=== PATIENT | male | born 1985 | race Caucasian/White ===

== ENCOUNTER 2022-09-06 13:08 | Outpatient (AMB) | payer MEDICAID, SELFPAY ==
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
[2022-09-06 13:14] VITALS: BP 136/72; PULSE 74; O2SAT 96
== END 2022-09-06 13:49 | disposition home or self-care (01) ==
LOC: HO.HCC 13:08
PROVIDERS: PCP Internal Medicine; Visit Provider Nurse Practitioner Psychiatric/Mental Health
DX: F11.90 Opioid use, unspecified, uncomplicated (principal)
CPT/HCPCS: 99204

== ENCOUNTER → 2022-09-06 13:08 | Outpatient (BNVA) | payer MEDICAID, SELFPAY | PROVIDERS: PCP Internal Medicine; Visit Provider Nurse Practitioner Psychiatric/Mental Health | DX: F11.20 Opioid dependence, uncomplicated (principal) | CPT/HCPCS: 99204 ==

== ENCOUNTER 2022-09-19 13:41 | Outpatient (AMB) | payer MEDICAID, SELFPAY ==
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
[2022-09-19 13:50] VITALS: BP 124/72; PULSE 95; O2SAT 98
== END 2022-09-19 14:54 | disposition home or self-care (01) ==
LOC: HO.HCC 13:41
PROVIDERS: PCP Internal Medicine; Visit Provider Nurse Practitioner Psychiatric/Mental Health
DX: F11.90 Opioid use, unspecified, uncomplicated (principal)
CPT/HCPCS: 99214; Q9992

== ENCOUNTER → 2022-09-19 13:41 | Outpatient (BNVA) | payer MEDICAID, SELFPAY | PROVIDERS: PCP Internal Medicine; Visit Provider Nurse Practitioner Psychiatric/Mental Health | DX: F11.20 Opioid dependence, uncomplicated (principal) | CPT/HCPCS: 80305; 96372; 99214 ==

== ENCOUNTER 2022-09-27 07:14 | Emergency (ER) | payer MEDICAID, SELFPAY ==
[2022-09-27 07:19] VITALS: BP 141/96; PULSE 110; RESP 20; TEMP 36.7; O2SAT 100; BMI 25.8
--- NOTE | 2022-09-27 08:06 | ED_ITS ---
HPI - Abdominal Pain General Chief Complaint: Abdominal Pain Stated Complaint: N/V per EMS Time Seen by Provider: 09/27/22 07:14 Source: patient and other (Girlfriend, eRnea) Mode of arrival: EMS Limitations: no limitations History of Present Illness HPI narrative: 29-year-old male who presents emergency department for evaluation of 3 days of epigastric pain, nausea, vomiting, unable to sleep. The patient states that he has has had heartburn in the past. He states over the last 3 days his heartburn symptoms have come back. He points to his epigastric area and states that he has a burning sensation that travels up his neck to the back of his throat. He states that any time he eats or drinks the pain gets worse and he vomits . He states he has had very little food and fluid intake over the last 3 days. He states that he has not had any sleep over the past 3 days. Patient does have a history of opiate and cocaine use disorder. He states he last used intranasal cocaine 3 days prior. He is on Subutex IM and Suboxone. He states that he used opiates several weeks ago. He denied fever chills. He denied sore throat, cough, chest pain. He does have shortness of breath. He denied diarrhea, dark black stools or bloody stools. Patient was recently seen by to [facility] medicine on 09/19/2022-note does reference the patient's recent cocaine use cut with methadone and patient's heroin use. Patient is on you been or friend injections and Suboxone sublingually twice a day. His tox screen that visit was positive for cocaine, methamphetamine, bupernorphine. Related Data Previous Rx's Medication Instructions Recorded buprenorphine 300 mg/1.5 mL 300 mg (1.5 mL) subcut .COMPLEX 09/06/22 solution,exten.rel.subcutaneous #1.5 mL syringe (Sublocade) buprenorphine 8 mg-naloxone 2 mg 1 film sublingual BID #12 ea 09/06/22 sublingual film (Suboxone) naloxone 4 mg/actuation nasal 4 mg intranasal Q2M PRN opioid 09/06/22 spray (Narcan) overdose #2 ea aluminum hydrox-magnesium carb 254 10 ml PO QID PRN dyspepsia #355 mL 09/27/22 mg-237.5 mg/5 mL oral suspension (Gaviscon Extra Strength) omeprazole 20 mg capsule,delayed 20 mg PO DAILY 30 days #30 caps 09/27/22 release promethazine 25 mg tablet 25 mg PO Q6H PRN nausea and 09/27/22 vomiting #14 tabs Allergies Allergy/AdvReac Type Severity Reaction Status Date / Time No Known Allergies Allergy Unverified 09/19/22 13:43 Review of Systems Review of Systems Yes all other systems are reviewed and are negative [facility] Past Medical History [facility] Narrative: Past medical history: GERD, opiate and cocaine use disorder. Past surgical history: None. Social history: He smokes 5 cigarettes per day times 15 years. He states that he does drink alcohol and he last had to nips of alcohol 4 days prior. Patient does admit to using intranasal cocaine 3 days prior and using o piates 2 weeks prior. Social History Social History Advance Directives: No Advance Directives Information Provided: Yes Physical Exam ED Vital Signs: Vital Signs - 24 hr 09/27/22 07:19 Temperature 98.1 F Pulse Rate 110 H Respiratory Rate 20 Blood Pressure 141/96 H Pulse Oximetry 100 Oxygen Delivery Method Room Air BMI result Body Mass Index 25.8 Vital signs revealed an elevated blood pressure of 141/96 and elevated pulse of 110 Exam: General: Awake, appears anxious and very animated Head: Normocephalic, atraumatic EENT: PERRL, Lids normal, sclera normal, conjunctiva normal, nose normal , ears normal, throat without erythema or exudates Neck: Supple, no adenopathy, trachea midline and nontender Lung: breath sounds symmetric, no wheezing, rales or rhonchi Chest: symmetric movement, nontender Heart: regular rate and rhythm, normal S1, S2 no murmurs or rubs Abdomen: soft, mild diffuse tenderness, moderate epigastric tenderness, nondistended, normal bowel sounds Back: no vertebral tenderness, no CVAT Extremities: no deformities, moves all extremities symmetrically Skin: no rashes, no lesion, normal color and warmth Neuro: Awake, alert, oriented, normal speech, cranial nerves intact, moves all extremities symmetrically Psych: Pleasant, cooperative, anxious and animated Medical Decision Making Medical Decision Making [facility] Narrative: 37-year-old male with history of cocaine, opiates and methamphetamine use disorder, on Subutex and Suboxone who presents emergency department for evaluation of 3 days of nausea, vomiting, abdominal pain, inability to sleep. Patient did use intranasal cocaine 3 days prior pain. He also reports using heroin several weeks prior as well. Vital signs did reveal an elevated blood pressure 141/96 with a elevated pulse of 110 otherwise unremarkable. Patient does appear to be very anxious, he did have epigastric tenderness otherwise exam was unremarkable. I ordered a CBC, CMP, lipase, drug screen, ethanol level. Patient was treated with Toradol 15 mg IV, Ativan 2 mg IV. Patient did received Zofran IV by the paramedics prior to arrival. 1039: Laboratory evaluation did reveal acute kidney injury secondary to volume depletion dehydration otherwise unremarkable. Patient states that his abdominal pain/heartburn is not any better, his nausea is improved. Patient was ordered to get viscous lidocaine 10 cc, 10 cc and Maalox 30 cc orally. I also ordered Phenergan 12.5 mg IV and a 2 L of normal saline IV. 1200: The patient feels significantly better after the above treatment. Patient's presentation is consistent with gastritis/esophagitis. He was prescribed Prilosec 20 mg daily for 1 month, extra-strength Gaviscon 10 cc 4 times a day as needed for heartburn symptoms, Phenergan 25 mg every 6-8 hours as needed for nausea and vomiting. He was given printed and verbal instructions discharged home Differential Diagnosis Differential Diagnoses: The differential diagnosis associated with the presentation includes Differential diagnosis includes was not limited to gastritis, esophagitis, electrolyte abnormality, anemia, cocaine use disorder, heroin use disorder, methamphetamine use disorder, anxiety. Admission/Observation Consideration of admission/observation: Escalation of care including ad mission/observation considered Lab Data MDM Lab Attestation statement: I reviewed the patient's lab results. My interpretation patient's laboratory evaluation is as follows: WBC elevated 15,600-this is chronic. Elevated BUN and creatinine above his baseline of 272.3 consistent with acute kidney injury secondary to volume depletion/dehydration elevated glucose 152. LFTs were normal. Lipase was normal. Alcohol was below detectable limits. Urine tox pending urine collection. 09/27/22 08:38 09/27/22 08:38 Labs: Lab Results 09/27/22 09/27/22 Range/Units 08:38 08:38 WBC 15.6 H (4.8-10.8) X10*3/uL RBC 5.60 (4.60-5.80) X10*6/uL Hgb 16.5 (14.0-18.0) g/dl Hct 46.6 (42.0-52.0) % MCV 83.2 (80.0-98.0) fL MCH 29.5 (27.0-33.0) pg MCHC 35.4 (31.0-36.0) g/dl RDW 12.5 (11.0-16.0) % Plt Count 387 (160-400) X10*3/uL MPV 9.2 L (9.4-12.4) fL Immature Gran % (Auto) 0.4 (0.0-0.4) % Neut % (Auto) 82.9 H (45-73) % Lymph % (Auto) 7.9 L (20-40) % [place] % (Auto) 8.5 (2-11) % Eos % (Auto) 0.1 (0-4) % Baso % (Auto) 0.2 (0-2) % Lymph # (Auto) 1.2 (1.2-4.9) X10*3/uL [place] # (Auto) 1.3 H (0.1-1.2) X10*3/uL Eos # (Auto) 0.0 (0.0-0.4) X10*3/uL Baso # (Auto) 0.0 (0.0-0.2) X10*3/uL Abs Immat Gran (auto) 0.06 H (0.00-0.03) X10*3/uL Absolute Neuts (auto) 13.0 H (2.0-8.3) x10*3/uL Absolute Nucleated RBC 0.000 (0.0-0.012) X10*3/uL Nucleated RBC % (auto) 0.0 (0.0-0.2) /100WBC Sodium 142 (135-145) mmol/L Potassium 3.3 (3.3-5.1) mmol/L Chloride 96 (96-108) mmol/L Carbon Dioxide 28 (22-29) mmol/L Anion Gap 21 H (12-20) BUN 27 H (9-16) mg/dL Creatinine 2.31 H (0.5-1.4) mg/dL Estim Creat Clear Calc 40.5 Estimated GFR 32 Random Glucose 152 H (60-115) mg/dL Calcium 11.8 H (8.4-10.2) mg/dL Total Bilirubin 0.6 (0.0-1.0) mg/dL AST 16 (5-37) U/L ALT 39 (0-40) U/L Alkaline Phosphatase 67 (39-117) U/L Total Creatine Kinase 86 (38-174) U/L Total Protein 8.6 H (6.5-8.0) g/dL Albumin 5.0 (3.5-5.0) g/dL Lipase 13 (8-78) U/L Ethyl Alcohol < 10 mg/dL Medications Administered Discontinued Medications Generic Name Dose Route Start Last Admin Trade Name Freq PRN Reason Stop Dose Admin Al Hydroxide/Mg Hydroxide 30 ml 09/27/22 10:36 09/27/22 11:08 Magnesium Hydrox/Alum Hydrox 30 Ml Oral.Susp PO 09/27/22 10:37 30 ml ONCE STA Administration Belladonna Alkaloids/Phenobarbital 10 ml 09/27/22 10:36 09/27/22 11:08 Phenobarb/Hyoscy/Atropine/Scop 10 Ml Elixir PO 09/27/22 10:37 10 ml ONCE ONE Administration Sodium Chloride 1,000 mls @ 999 mls/hr 09/27/22 08:04 09/27/22 11:06 Ns IV 09/27/22 09:04 Infused .Q1H1M STA Infusion Sodium Chloride 1,000 mls @ 999 mls/hr 09/27/22 10:35 09/27/22 10:52 Ns IV 09/27/22 11:35 999 mls/hr .Q1H1M STA Administration Promethazine HCl 12.5 mg/ 50.5 mls @ 202 mls/hr 09/27/22 10:38 09/27/22 10:59 Sodium Chloride IV 09/27/22 10:39 202 mls/hr ONCE ONE Administration Ketorolac Tromethamine 15 mg 09/27/22 08:04 09/27/22 08:23 Ketorolac Tromethamine 15 Mg/Ml Vial IVPUSH 09/27/22 08:05 15 mg ONCE STA Administration Lidocaine HCl 10 ml 09/27/22 10:36 09/27/22 11:08 Lidocaine Hcl Viscous 2 % 15 Ml Solution PO 09/27/22 10:37 10 ml ONCE ONE Administration Lorazepam 2 mg 09/27/22 08:04 09/27/22 08:23 Lorazepam 2 Mg/Ml Vial IVPUSH 09/27/22 08:05 2 mg STAT STA Administration Discharge Plan Discharge Clinical Impression: Gastroesophageal reflux disease Qualifiers: Esophagitis presence: with esophagitis Esophagitis bleeding: without hemorrhage Qualified Code(s): K21.00 - Gastro-esophageal reflux disease with esophagitis, without bleeding Abdominal pain Qualifiers: Abdominal location: epigastric Qualified Code(s): R10.13 - Epigastric pain Vomiting Qualifiers: Vomiting type: unspecified Nausea presence: with nausea Qualified Code(s): R11.2 - Nausea with vomiting, unspecified Patient Disposition: Home, Self-Care Instructions: Gastroesophageal Reflux Disease (ED) Additional Instructions: Your blood work was unremarkable. Your symptoms are consistent with acid buildup in your stomach which is then going on your throat (gastroesophageal reflux disease) Take Prilosec (omeprazole) 20 mg pills, 1 pill once a day for 1 month. This medication shuts off your acid production and lets the inflammation in your stomach and esophagus heal. Take extra-strength Gaviscon 10 mL (2 tsp) 4 times a day as needed for abdominal pain. Take Phenergan (promethazine) 25 mg, 1 pill every 6-8 hours as needed for nausea and vomiting Follow-up with your doctor in 2 days. Please return to the emergency department if your symptoms get worse or if you develop any symptoms that are concerning to you. Prescriptions: New promethazine 25 mg tablet 25 mg PO Q6H PRN (Reason: nausea and vomiting) Qty: 14 0RF omeprazole 20 mg capsule,delayed release(DR/EC) 20 mg PO DAILY 30 Days Qty: 30 0RF Gaviscon Extra Strength 254-237.5 mg/5 mL suspension 10 ml PO QID PRN (Reason: dyspepsia) Qty: 355 0RF No Action buprenorphine-naloxone [Suboxone] 8-2 mg film 1 film sublingual BID Qty: 12 0RF naloxone [Narcan] 4 mg/actuation spray,non-aerosol 4 mg intranasal Q2M PRN (Reason: opioid overdose) Qty: 2 0RF Rx Instructions: spray 1 dose into ONE nostril; alternate nostrils w each dose until help arrives Sublocade 300 mg/1.5 mL solution, extended rel syringe 300 mg subcut .COMPLEX Qty: 1.5 5RF Rx Instructions: 300 mg subcutaneously every 28 days;
[2022-09-27] MEDS: 0.9 % Sodium Chloride 1,000 ML 999 ML IV ×2 (08:23→10:52)
[2022-09-27] MEDS: LORazepam 2 MG/ML VIAL IVPUSH (08:23)
[2022-09-27] MEDS: Ketorolac Tromethamine 15 MG/ML VIAL IVPUSH (08:23)
[2022-09-27 08:41] LABS: MANUAL DIFF FLAG NO
[2022-09-27 08:43] LABS: Basophils Percent Auto 0.2 % (0-2); Eosinophils Percent Auto 0.1 % (0-4); Hematocrit 46.6 % (42.0-52.0); Hemoglobin 16.5 g/dl (14.0-18.0); Imm Gran Abs Auto 0.06 X10*3/uL (0.00-0.03); Imm Gran Pct Auto 0.4 % (0.0-0.4); Lymphocytes Absolute Auto 1.2 X10*3/uL (1.2-4.9); Lymphocytes Percent Auto 7.9 % (20-40); Mean Corpuscular HGB Conc 35.4 g/dl (31.0-36.0); Mean Corpuscular Hemoglobin 29.5 pg (27.0-33.0); Mean Corpuscular Volume 83.2 fL (80.0-98.0); Mean Platelet Volume 9.2 fL (9.4-12.4); Monocytes Absolute Auto 1.3 X10*3/uL (0.1-1.2); Monocytes Percent Auto 8.5 % (2-11); Neutrophils Percent Auto 82.9 % (45-73); Platelet Count 387 X10*3/uL (160-400); Red Cell Distribution Width 12.5 % (11.0-16.0); White Blood Count 15.6 X10*3/uL (4.8-10.8)
[2022-09-27 09:00] LABS: Alanine Aminotransferase 39 U/L (0-40); Alkaline Phosphatase 67 U/L (39-117); Anion Gap 21 (12-20); Aspartate Amino Transferase 16 U/L (5-37); Bilirubin Total 0.6 mg/dL (0.0-1.0); Blood Urea Nitrogen 27 mg/dL (9-16); Calcium 11.8 mg/dL (8.4-10.2); Carbon Dioxide 28 mmol/L (22-29); Chloride 96 mmol/L (96-108); Creatinine Clr Calc Pharmacy 40.5; Estimated Glomerular Filt Rate 32; Ethanol < 10 mg/dL; Glucose Random 152 mg/dL (60-115); Lipase 13 U/L (8-78); Potassium 3.3 mmol/L (3.3-5.1); Sodium 142 mmol/L (135-145); Total Protein 8.6 g/dL (6.5-8.0)
[2022-09-27] MEDS: Lidocaine HCl Viscous 2 % 15 ML SOLUTION 10 ML PO (11:08)
[2022-09-27] MEDS: PHENobarb/Hyoscy/Atropine/Scop 10 ML ELIXIR PO (11:08)
[2022-09-27] MEDS: Magnesium Hydrox/Alum Hydrox 30 ML ORAL.SUSP PO (11:08)
[2022-09-27 12:31] LABS: Amphetamine Screen Urine POSITIVE (Not Detect); Barbiturates, Urine Not Detected (Not Detect); Benzodiazepines Screen Urine Not Detected (Not Detect); Cannabinoid Screen Urine Not Detected (Not Detect); Cocaine Screen Urine POSITIVE (Not Detect); Opiate Screen Urine POSITIVE (Not Detect); Phencyclidine Screen Urine Not Detected (Not Detect)
[2022-09-29 12:39] LABS: Fentanyl, urine SEE COMMENTS (Not Detect)
== END 2022-09-27 12:37 | disposition home or self-care (01) ==
PROVIDERS: Emergency Provider Emergency Medicine Emergency Medical Services
DX: K21.00 Gastro-esophageal reflux disease with esophagitis, without bleeding (principal); R10.13 Epigastric pain; R11.2 Nausea with vomiting, unspecified; N17.9 Acute kidney failure, unspecified; E86.0 Dehydration; R06.02 Shortness of breath; F11.20 Opioid dependence, uncomplicated
CPT/HCPCS: 36415; 80053; 80307; 80354; 82550; 83690; 85025; 96361; 96374; 96375; 99284; J1885; J2060; J2550